=== PATIENT | female | born 1995 | race Caucasian/White ===

== ENCOUNTER 2017-04-06 11:48 | Emergency (ER) | payer OTHER ==
[2017-04-06 11:53] VITALS: TEMP 98.2
[2017-04-06] MEDS ORDERED: ONDANSETRON 4 MG/2 ML VIAL IVP ONE (12:46)
[2017-04-06] MEDS ORDERED: NS 1,000 ML IV ONE (12:46)
[2017-04-06] MEDS ORDERED: HYDROmorphONE/DILAUDID 1 MG/ML INJ IVP ONE (12:46)
--- NOTE | 2017-04-06 12:46 | EDPHY ---
General Narrative: CHIEF COMPLAINT: Abdominal pain HISTORY OF PRESENT ILLNESS: Patient complains of 10 hours history of lower abdominal pain. Sudden onset. Constant duration. Severe pain. Nauseated but no vomiting. She has got some vaginal discharge and bleeding recently. She was seen at principal statistical programmer office yesterday to established as a new patient, as her previous principal statistical programmer had retired. She had no pain at the time. It is worse with any kind of movement or palpation. 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 She has had recurrent revisions for this. She has no other associated complaints or modifying factors.. The visit yesterday did include pelvic exam with swabs that were pending. REVIEW OF SYSTEMS: Ten systems reviewed and are negative unless otherwise noted in the HPI PCP: None locally. Back in [place] SPECIALISTS: Dr. Rasheed, currently establishing here with [facility] PAST MEDICAL HISTORY: Ovarian cyst, ovarian torsion, laryngeal tracheomalacia PAST SURGICAL HISTORY: Tracheostomy as a . Multiple abdominal surgeries for dermoid cyst and torsion SOCIAL HISTORY: Nonsmoker. Originally from [place]. 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 FAMILY HISTORY: Noncontributory EXAMINATION General Appearance: Alert, no distress, crying but consolable Head: normocephalic, atraumatic Eyes: Pupils equal and round, no conjunctival pallor or injection ENT, Mouth: Mucous membranes moist Neck: Normal inspection, supple, non-tender Respiratory: Lungs are clear to auscultation. No wheeze, rhonchi or crackles Cardiovascular: Regular rate and rhythm. No murmur Gastrointestinal: Abdomen is soft and nondistended. There is tenderness in the lower quadrants. No rebound. No guarding. No tympany. No rigidity. No CVA tenderness. Back: non-tender, no bony abnormalities Neurological: A&O, nonfocal, normal gait Skin: Warm and dry, no rash Extremities: Nontender, no pedal edema Psychiatric: Mood and affect normal DIFFERENTIAL DIAGNOSES: Including but not limited to ovarian torsion, ovarian cyst, ruptured ovarian cyst, appendicitis, colitis, UTI, cystitis, ureteral stone MDM: 12:45 p.m. Lower abdominal pain in a patient with history of ovarian cyst and torsion. I have ordered a stat ultrasound of the pelvis to rule out torsion. Laboratory studies, pain medication IV fluid ordered. 1:00 p.m. I reviewed the laboratory studies from yesterday, her pelvic examination was negative for gonorrhea chlamydia. It was positive for bacterial vaginosis. I will treat her with Flagyl. 1:29 p.m. Laboratory studies are all negative. This includes CBC, chemistry, lipase. Urinalysis pending. Ultrasound pending. 2:05 p.m. Contacted by radiologist Dr. Richmond. Ultrasound findings as documented. Concern for poor position of the left ovary. Recommend CT scan for further imaging if indicated never examine the patient. She continues to have pain and has consented to the CT scan. 3:00 p.m. Patient re-evaluated. Still pending CT scan. 3:[address] scan as reviewed by me reveals significant stool but no acute findings. Pending radiology interpretation. 4:10 p.m. Case discussed with radiologist Dr. Richmond. CT scan findings of the abdomen pelvis as documented. This includes mild thickening of the bladder wall, moderate stool. No other acute findings. 4:20 p.m. I have re-evaluated the patient. I have updated her niece findings of the CT scan and her laboratory studies. There is a possibility of early urinary tract infection. I have ordered a urine culture. I will treat her for her bacterial vaginosis that was diagnosed on yesterday's pelvic exam. All treated with Keflex for the urinary tract infection. I will provide a prescription for Diflucan as she reports being prone to yeast infections. I would like her to take a dose of magnesium citrate this evening and consider MiraLax daily. I would like her to follow up here or with primary care physician in 48 hours for recheck if no improvement. Return sooner for any worsening pain. She is comfortable this plan. At time of discharge her abdominal pain is resolved. - Diagnostics Imaging Results: Imaging Impressions Pelvic/Renal Ultrasound 04/06/17 12:47 Impression: 1. Normal appearance of the right ovary, with no evidence of torsion. 2. Nonconfident evaluation of the left ovary. Findings were discussed with Bienvenido Nunez PA-C at 14:02, on 04/06/2017. If there is further clinical concern regarding the patient's symptoms, contrast enhanced CT imaging could be considered. - History Smoking Status: Never smoked - Objective Vital Signs: Initial Vital Signs Temperature (C) 98.2 F 04/06/17 11:51 Heart Rate 100 04/06/17 11:51 Respiratory Rate 20 04/06/17 11:51 Blood Pressure 138/95 H 04/06/17 11:51 O2 Sat (%) 96 04/06/17 11:51 O2 Delivery Mode Room Air Allergies/Adverse Reactions: No Known Allergies Allergy (Verified 04/06/17 11:50) Home Medications: Medication Instructions Recorded Seasonale/Jolessa 03/04/16 Cephalexin [Keflex (*)] 500 mg PO TID #21 cap 04/06/17 Fluconazole [Diflucan (*)] 150 mg PO ONCE #2 tab 04/06/17 Magnesium Citrate [Magnesium 300 ml PO ONCE #1 bottle 04/06/17 Citrate 300 ml (*)] metroNIDAZOLE [Flagyl 500 mg (*)] 500 mg PO BID #14 tab 04/06/17 Laboratory Results: Laboratory Results 04/06/17 13:01 04/06/17 13:01 04/06/17 04/06/17 04/06/17 14:12 13:01 13:01 WBC RBC Hgb Hct MCV MCH MCHC RDW Plt Count MPV Neut % (Auto) Lymph % (Auto) [place] % (Auto) Eos % (Auto) Baso % (Auto) Nucleat RBC Rel Count Absolute Neuts (auto) Absolute Lymphs (auto) Absolute Monos (auto) Absolute Eos (auto) Absolute Basos (auto) Absolute Nucleated RBC Immature Gran % Immature Gran # Sodium 137 mEq/L mEq/L (134-144) Potassium 4.6 mEq/L mEq/L (3.5-5.2) Chloride 106 mEq/L mEq/L (97-110) Carbon Dioxide 21 mEq/l L mEq/l (22-31) Anion Gap 10 mEq/L mEq/L (8-16) BUN 8 mg/dL mg/dL (7-23) Creatinine 0.8 mg/dL mg/dL (0.6-1.0) Estimated GFR > 60 Glucose 84 mg/dL mg/dL (70-100) Calcium 9.9 mg/dL mg/dL (8.5-10.4) Total Bilirubin 0.6 mg/dL mg/dL (0.1-1.4) Conjugated Bilirubin 0.2 mg/dL mg/dL (0.0-0.5) Unconjugated Bilirubin 0.4 mg/dL mg/dL (0.0-1.1) AST 18 IU/L IU/L (14-46) ALT 22 IU/L IU/L (9-52) Alkaline Phosphatase 86 IU/L IU/L (38-126) Total Protein 7.4 g/dL g/dL (6.3-8.2) Albumin 4.2 g/dL g/dL (3.5-5.0) Lipase 89 IU/L IU/L (23-300) Beta HCG, Qual NEGATIVE Urine Color MOI Urine Appearance MODERATELY TURBID Urine pH 5.0 (5.0-7.5) Ur Specific [place] 1.028 (1.002-1.030) Urine Protein 1+ H (NEGATIVE) Urine Ketones NEGATIVE (NEGATIVE) Urine Blood NEGATIVE (NEGATIVE) Urine Nitrate NEGATIVE (NEGATIVE) Urine Bilirubin NEGATIVE (NEGATIVE) Urine Urobilinogen 2.0 EU H EU (0.2-1.0) Ur Leukocyte Esterase 1+ H (NEGATIVE) Urine RBC 5-10 /hpf H /hpf (0-3) Urine WBC 10-15 /hpf H /hpf (0-3) Ur Epithelial Cells TRACE /lpf /lpf (NONE-1+) Urine Bacteria 3+ /hpf H /hpf (NONE SEEN) Urine Mucus 2+ /lpf H /lpf (NONE-1+) Urine Yeast PRESENT /hpf /hpf (NONE SEEN) Urine Glucose NEGATIVE (NEGATIVE) 04/06/17 13:01 WBC 6.90 10^3/uL 10^3/uL (3.80-9.50) RBC 4.91 10^6/uL 10^6/uL (4.18-5.33) Hgb 13.5 g/dL g/dL (12.6-16.3) Hct 40.6 % % (38.0-47.0) MCV 82.7 fL fL (81.5-99.8) MCH 27.5 pg L pg (27.9-34.1) MCHC 33.3 g/dL g/dL (32.4-36.7) RDW 14.5 % % (11.5-15.2) Plt Count 237 10^3/uL 10^3/uL (150-400) MPV 10.3 fL fL (8.7-11.7) Neut % (Auto) 72.9 % % (39.3-74.2) Lymph % (Auto) 15.1 % % (15.0-45.0) [place] % (Auto) 9.7 % % (4.5-13.0) Eos % (Auto) 1.3 % % (0.6-7.6) Baso % (Auto) 0.6 % % (0.3-1.7) Nucleat RBC Rel Count 0.0 % % (0.0-0.2) Absolute Neuts (auto) 5.03 10^3/uL 10^3/uL (1.70-6.50) Absolute Lymphs (auto) 1.04 10^3/uL 10^3/uL (1.00-3.00) Absolute Monos (auto) 0.67 10^3/uL 10^3/uL (0.30-0.80) Absolute Eos (auto) 0.09 10^3/uL 10^3/uL (0.03-0.40) Absolute Basos (auto) 0.04 10^3/uL 10^3/uL (0.02-0.10) Absolute Nucleated RBC 0.00 10^3/uL 10^3/uL (0-0.01) Immature Gran % 0.4 % % (0.0-1.1) Immature Gran # 0.03 10^3/uL 10^3/uL (0.00-0.10) Sodium Potassium Chloride Carbon Dioxide Anion Gap BUN Creatinine Estimated GFR Glucose Calcium Total Bilirubin Conjugated Bilirubin Unconjugated Bilirubin AST ALT Alkaline Phosphatase Total Protein Albumin Lipase Beta HCG, Qual Urine Color Urine Appearance Urine pH Ur Specific [place] Urine Protein Urine Ketones Urine Blood Urine Nitrate Urine Bilirubin Urine Urobilinogen Ur Leukocyte Esterase Urine RBC Urine WBC Ur Epithelial Cells Urine Bacteria Urine Mucus Urine Yeast Urine Glucose Medications Given: Discontinued Medications Hydromorphone HCl (Dilaudid) 0.5 mg IVP EDNOW ONE Stop: 04/06/17 12:47 Last Admin: 04/06/17 13:02 Dose: 0.5 mg Sodium Chloride (Ns) 1,000 mls @ 0 mls/hr IV EDNOW ONE; Wide Open PRN Reason: Protocol Stop: 04/06/17 12:47 Last Admin: 04/06/17 13:03 Dose: 1,000 mls Ondansetron HCl (Zofran) 4 mg IVP EDNOW ONE Stop: 04/06/17 12:47 Last Admin: 04/06/17 13:02 Dose: 4 mg Departure - Departure Disposition: Home, Routine, Self-Care Clinical Impression: Bacterial vaginosis Abdominal pain Qualifiers: Abdominal location: lower abdomen, unspecified Qualified Code(s): R10.30 - Lower abdominal pain, unspecified Constipation Qualifiers: Constipation type: unspecified constipation type Qualified Code(s): K59.00 - Constipation, unspecified Acute cystitis Qualifiers: Hematuria presence: with hematuria Qualified Code(s): N30.01 - Acute cystitis with hematuria Condition: Good Instructions: Acute Abdominal Pain (ED), Urinary Tract Infection in Women (ED) , Constipation (ED), Bacterial Vaginosis (ED) Additional Instructions: 1. Medications as prescribed to completion 2. Magnesium citrate x1 3. MiraLax once daily dosing [id number] 4. Increase fiber and water intake 5. Follow up with primary care physician or here in 48 hours for recheck 6. ED precautions for worsening pain, fever, right lower quadrant pain Referrals: NONE *PRIMARY CARE P,. [Primary Care Provider] - As per Instructions Casey Hernandez MD [Medical Doctor] - As per Instructions Stand Alone Forms: School Excuse Prescriptions: Cephalexin [Keflex (*)] 500 mg PO TID #21 cap Fluconazole [Diflucan (*)] 150 mg PO ONCE #2 tab Magnesium Citrate [Magnesium Citrate 300 ml (*)] 300 ml PO ONCE #1 bottle metroNIDAZOLE [Flagyl 500 mg (*)] 500 mg PO BID #14 tab
[2017-04-06 13:09] LABS: % IMMATURE GRANULYOCYTES 0.4 % (0.0-1.1); ABSOLUTE IMMATURE GRANULOCYTES 0.03 10^3/uL (0.00-0.10); ADD DIFF? NO; ADD MORPH? NO; ADD SCAN? NO; ATYPICAL LYMPHOCYTE FLAG 0 (0-99); FRAGMENT RBC FLAG 0 (0-99); HEMATOCRIT 40.6 % (38.0-47.0); HEMOGLOBIN 13.5 g/dL (12.6-16.3); LEFT SHIFT FLG 10 (0-99); LIPEMIA HEMOLYSIS FLAG 80 (0-99); MEAN CELL HEMOGLOBIN 27.5 pg (27.9-34.1); MEAN CELL HEMOGLOBIN CONCENTR. 33.3 g/dL (32.4-36.7); MEAN CELL VOLUME 82.7 fL (81.5-99.8); MEAN PLATELET VOLUME 10.3 fL (8.7-11.7); PLATELET CLUMPS FLAG 10 (0-99); PLATELET COUNT 237 10^3/uL (150-400); RED BLOOD CELL COUNT 4.91 10^6/uL (4.18-5.33); RED CELL DISTRIBUTION WIDTH 14.5 % (11.5-15.2)
[2017-04-06 13:24] LABS: ALANINE AMINOTRANSFERASE 22 IU/L (9-52); ALBUMIN 4.2 g/dL (3.5-5.0); ALKALINE PHOSPHATASE 86 IU/L (38-126); ANION GAP 10 mEq/L (8-16); ASPARTATE AMINOTRANSFERASE 18 IU/L (14-46); BILIRUBIN,TOTAL 0.6 mg/dL (0.1-1.4); BILIRUBIN-CONJUGATED 0.2 mg/dL (0.0-0.5); BILIRUBIN-UNCONJUGATED 0.4 mg/dL (0.0-1.1); CALCIUM 9.9 mg/dL (8.5-10.4); CARBON DIOXIDE 21 mEq/l (22-31); CHLORIDE 106 mEq/L (97-110); CREATININE 0.8 mg/dL (0.6-1.0); GLOMERULAR FILTRATION RATE > 60; GLUCOSE 84 mg/dL (70-100); POTASSIUM 4.6 mEq/L (3.5-5.2); SODIUM 137 mEq/L (134-144); TOTAL PROTEIN 7.4 g/dL (6.3-8.2)
[2017-04-06] MEDS ORDERED: IOPAMIDOL (ISOVUE-300) 100 ML BTL ONE (14:21)
[2017-04-06 14:59] LABS: BACTERIA 3+ /hpf (NONE SEEN); COLOR AMBER; LEUKOCYTE ESTERASE,URINE 1+ (NEGATIVE); MUCUS 2+ /lpf (NONE-1+); NITRITE,URINE NEGATIVE (NEGATIVE); YEAST PRESENT /hpf (NONE SEEN)
[2017-04-06 15:33] VITALS: RESP 18; O2SAT 100
[2017-04-06 16:43] VITALS: BP 104/68; PULSE 69
== END 2017-04-06 16:42 | disposition home or self-care (01) ==
DX: K59.00 Constipation, unspecified (principal); N30.01 Acute cystitis with hematuria; N76.0 Acute vaginitis; B96.89 Other specified bacterial agents as the cause of diseases classified elsewhere; E86.9 Volume depletion, unspecified
CPT/HCPCS: 96374; J1170; J2405; Q9967

== ENCOUNTER 2017-05-26 23:43 | Emergency (ER) | payer OTHER ==
[2017-05-27 00:16] VITALS: TEMP 97.9
[2017-05-27 00:54] LABS: % IMMATURE GRANULYOCYTES 0.8 % (0.0-1.1); ABSOLUTE IMMATURE GRANULOCYTES 0.04 10^3/uL (0.00-0.10); ADD DIFF? NO; ADD MORPH? NO; ADD SCAN? NO; ATYPICAL LYMPHOCYTE FLAG 20 (0-99); FRAGMENT RBC FLAG 0 (0-99); HEMATOCRIT 42.9 % (38.0-47.0); HEMOGLOBIN 14.4 g/dL (12.6-16.3); LEFT SHIFT FLG 0 (0-99); LIPEMIA HEMOLYSIS FLAG 80 (0-99); MEAN CELL HEMOGLOBIN CONCENTR. 33.6 g/dL (32.4-36.7); MEAN CELL VOLUME 83.5 fL (81.5-99.8); MEAN PLATELET VOLUME 10.2 fL (8.7-11.7); PLATELET CLUMPS FLAG 0 (0-99); PLATELET COUNT 317 10^3/uL (150-400); RED BLOOD CELL COUNT 5.14 10^6/uL (4.18-5.33); RED CELL DISTRIBUTION WIDTH 13.5 % (11.5-15.2)
--- NOTE | 2017-05-27 00:58 | EDPHY ---
H & P Stated Complaint: ?Suicide attempt/SI +++EtOH - Personal History LMP (Females 10-55): Irregular Current Tetanus Diphtheria and Acellular Pertussis (TDAP): Yes - Medical/Surgical History Hx Asthma: No Hx Chronic Respiratory Disease: No Hx Diabetes: No Hx Cardiac Disease: No Hx Renal Disease: No Hx Cirrhosis: No Hx Alcoholism: No Hx HIV/AIDS: No Hx Splenectomy or Spleen Trauma: No Other PMH: PMHx: PSHx: tracheomalacia, tracheotomies, ovarian tumors bilat - Social History Smoking Status: Never smoked HPI/ROS: Chief complaint: Possible suicidal ideation History of present illness: This is a 22-year-old female who was brought to the emergency department by friends out of concern that she was having suicidal thoughts. Patient is currently dealing with medical issues which include preparing to have surgery this week for a dermoid cyst. Apparently she is upset about this. She was at home cooking in drinking some alcohol this evening. Friends came over and apparently she made the statement that she did not want live anymore. Patient does admit to this statement however she denies actual suicidal ideation, she states she was just making out of frustration. She denies homicidal ideation. She denies illness or injury. Review of systems: A 10 point review of systems was obtained and other than described above was negative (Gustavo Weems) - Physical Exam Exam: General Appearance: Alert, nontoxic, heart hearing does not have hearing aids, reads lips and signs. Eyes: Pupils equal and round no pallor or injection. ENT, Mouth: Mucous membranes moist. Respiratory: There are no retractions, lungs are clear to auscultation. Cardiovascular: Regular rate and rhythm. Gastrointestinal: Abdomen is soft and non tender, no masses, bowel sounds normal. Neurological: Alert. Strength and sensation intact and symmetrical. Skin: Warm and dry, no rashes. Musculoskeletal: Neck is supple non tender. Extremities are symmetrical, full range of motion. Psychiatric: Patient is crying, appears upset. She is cooperative. (Gustavo Weems) Constitutional: Initial Vital Signs Temperature (C) 36.6 C 05/27/17 00:05 Heart Rate 110 H 05/27/17 00:05 Respiratory Rate 24 H 05/27/17 00:05 Blood Pressure 131/96 H 05/27/17 00:05 O2 Sat (%) 97 05/27/17 00:05 O2 Delivery Mode Room Air Allergies/Adverse Reactions: No Known Allergies Allergy (Verified 05/27/17 00:04) Home Medications: Medication Instructions Recorded Vee/Weia 03/04/16 Cephalexin [Keflex (*)] 500 mg PO TID #21 cap 04/06/17 Fluconazole [Diflucan (*)] 150 mg PO ONCE #2 tab 04/06/17 Magnesium Citrate [Magnesium 300 ml PO ONCE #1 bottle 04/06/17 Citrate 300 ml (*)] metroNIDAZOLE [Flagyl 500 mg (*)] 500 mg PO BID #14 tab 04/06/17 Naproxen 05/27/17 Medical Decision Making ED Course/Re-evaluation: Patient seen under the supervision of my secondary supervising physician Dr. Emilio Copeland. Patient presents to the emergency department with friends reported that she was stating she want to kill yourself. Patient does report she stated this but does not want to kill herself. She does admit to drinking alcohol. She is medically evaluated, she is significantly intoxicated. She will need to sober up overnight so she can be evaluated by mental health in the morning. Care of patient turned over to my attending physician Dr. Emilio Copeland at end of shift. (Gustavo Weems) This patient was signed out to me at shift change. I just re-evaluated her. She is clinically sober this morning. She is not suicidal. She states that she had a rough night and although she has attempted suicide in the past and has been hospitalized in the past she does not feel like she could never do that now. She is in a very good treatment program that she thinks is working for her. Additionally, she has has a lot of things going on in her life as she "directly and she would never commit suicide. Now that she sober she would like to just go home. She is admit and scared about going to a psychiatric facility because she has been there before and it made things worse for her. She has contracted for safety with me. (Nixon Gonzales) Other Provider: 0200 care assumed by me from SHIVA weems pending sober mental health evaluation. [address] Gonzales pending mental health evaluation. No issues during my care of this patient overnight. (Emilio Salas) - Data Points Laboratory Results: Laboratory Results 05/27/17 00:43 05/27/17 00:43 05/27/17 05/27/17 05/27/17 00:43 00:43 00:43 WBC RBC Hgb Hct MCV MCH MCHC RDW Plt Count MPV Neut % (Auto) Lymph % (Auto) [place] % (Auto) Eos % (Auto) Baso % (Auto) Nucleat RBC Rel Count Absolute Neuts (auto) Absolute Lymphs (auto) Absolute Monos (auto) Absolute Eos (auto) Absolute Basos (auto) Absolute Nucleated RBC Immature Gran % Immature Gran # Sodium 149 mEq/L H mEq/L (134-144) Potassium 4.4 mEq/L mEq/L (3.5-5.2) Chloride 113 mEq/L H mEq/L (97-110) Carbon Dioxide 17 mEq/l L mEq/l (22-31) Anion Gap 19 mEq/L H mEq/L (8-16) BUN 7 mg/dL mg/dL (7-23) Creatinine 0.7 mg/dL mg/dL (0.6-1.0) Estimated GFR > 60 Glucose 104 mg/dL H mg/dL (70-100) Calcium 10.0 mg/dL mg/dL (8.5-10.4) Beta HCG, Qual NEGATIVE Salicylates < 1.0 mg/dL L mg/dL (2.0-20.0) Urine Opiates Screen NEGATIVE (NEGATIVE) Acetaminophen < 10 mcg/mL L mcg/mL (10-30) Urine Barbiturates NEGATIVE (NEGATIVE) Ur Phencyclidine Scrn NEGATIVE (NEGATIVE) Ur Amphetamine Screen NEGATIVE (NEGATIVE) U Benzodiazepines Scrn NEGATIVE (NEGATIVE) Urine Cocaine Screen NEGATIVE (NEGATIVE) U Marijuana (THC) Screen NEGATIVE (NEGATIVE) Ethyl Alcohol 260 mg/dL H mg/dL (0-10) 05/27/17 00:43 WBC 5.23 10^3/uL 10^3/uL (3.80-9.50) RBC 5.14 10^6/uL 10^6/uL (4.18-5.33) Hgb 14.4 g/dL g/dL (12.6-16.3) Hct 42.9 % % (38.0-47.0) MCV 83.5 fL fL (81.5-99.8) MCH 28.0 pg pg (27.9-34.1) MCHC 33.6 g/dL g/dL (32.4-36.7) RDW 13.5 % % (11.5-15.2) Plt Count 317 10^3/uL 10^3/uL (150-400) MPV 10.2 fL fL (8.7-11.7) Neut % (Auto) 46.3 % % (39.3-74.2) Lymph % (Auto) 42.6 % % (15.0-45.0) [place] % (Auto) 6.9 % % (4.5-13.0) Eos % (Auto) 2.3 % % (0.6-7.6) Baso % (Auto) 1.1 % % (0.3-1.7) Nucleat RBC Rel Count 0.0 % % (0.0-0.2) Absolute Neuts (auto) 2.42 10^3/uL 10^3/uL (1.70-6.50) Absolute Lymphs (auto) 2.23 10^3/uL 10^3/uL (1.00-3.00) Absolute Monos (auto) 0.36 10^3/uL 10^3/uL (0.30-0.80) Absolute Eos (auto) 0.12 10^3/uL 10^3/uL (0.03-0.40) Absolute Basos (auto) 0.06 10^3/uL 10^3/uL (0.02-0.10) Absolute Nucleated RBC 0.00 10^3/uL 10^3/uL (0-0.01) Immature Gran % 0.8 % % (0.0-1.1) Immature Gran # 0.04 10^3/uL 10^3/uL (0.00-0.10) Sodium Potassium Chloride Carbon Dioxide Anion Gap BUN Creatinine Estimated GFR Glucose Calcium Beta HCG, Qual Salicylates Urine Opiates Screen Acetaminophen Urine Barbiturates Ur Phencyclidine Scrn Ur Amphetamine Screen U Benzodiazepines Scrn Urine Cocaine Screen U Marijuana (THC) Screen Ethyl Alcohol Departure - Departure Clinical Impression: Suicidal ideation Alcohol intoxication Qualifiers: Complication of substance-induced condition: uncomplicated Qualified Code(s): F10.920 - Alcohol use, unspecified with intoxication, uncomplicated Condition: Good Instructions: Alcohol Intoxication (ED), Suicide Prevention for Adults (ED) Referrals: Patient,NotPresent [Unknown] - As per Instructions [facility],. [Clinic] - As per Instructions
[2017-05-27 01:16] LABS: ANION GAP 19 mEq/L (8-16); CARBON DIOXIDE 17 mEq/l (22-31); CHLORIDE 113 mEq/L (97-110); CREATININE 0.7 mg/dL (0.6-1.0); ETHANOL SERUM 260 mg/dL (0-10); GLOMERULAR FILTRATION RATE > 60; GLUCOSE 104 mg/dL (70-100); POTASSIUM 4.4 mEq/L (3.5-5.2); SALICYLATE < 1.0 mg/dL (2.0-20.0); SODIUM 149 mEq/L (134-144)
[2017-05-27 07:22] VITALS: BP 121/87; PULSE 111; RESP 16; O2SAT 96
== END 2017-05-27 07:20 | disposition home or self-care (01) ==
DX: R45.851 Suicidal ideations (principal); F10.920 Alcohol use, unspecified with intoxication, uncomplicated
CPT/HCPCS: 80305; G0480

== ENCOUNTER 2018-06-04 14:54 | Emergency (ER) | payer OTHER ==
--- NOTE | 2018-06-04 15:30 | EDPHY ---
H & P Stated Complaint: CHRONIC PELVIC OVARIAN PAIN/HAS PAIN DR IN [place] /L OVARY PAIN Time Seen by Provider: 06/04/18 15:28 HPI/ROS: CHIEF COMPLAINT: Acute exacerbation of chronic pelvic pain HISTORY OF PRESENT ILLNESS: The patient presents to the ED with a complaint of acute left lower quadrant pain. The patient has a history of chronic pelvic pain from ovarian cyst. She has had multiple pelvic surgeries the complicated by adhesions. She is currently under the care of a chief development officer in [place]. The patient denies any fever. She has had symptoms for the past 48 hr. The patient is complaining of fairly typical pain in the left lower quadrant. She denies any fever, cough or congestion. She denies additional acute complaints. REVIEW OF SYSTEMS: A comprehensive 10 point review of systems is otherwise negative aside from elements mentioned in the history of present illness. Source: Patient - Personal History LMP (Females 10-55): 8-14 Days Ago Current Tetanus Diphtheria and Acellular Pertussis (TDAP): No - Medical/Surgical History Hx Asthma: No Hx Chronic Respiratory Disease: No Hx Diabetes: No Hx Cardiac Disease: No Hx Renal Disease: No Hx Cirrhosis: No Hx Alcoholism: No Hx HIV/AIDS: No Hx Splenectomy or Spleen Trauma: No Other PMH: PMHx: PSHx: tracheomalacia, tracheotomies, ovarian tumors bilat - Social History Smoking Status: Never smoked - Physical Exam Exam: General Appearance: Alert, tearful, mild discomfort Eyes: Pupils equal and round no pallor or injection ENT, Mouth: Mucous membranes moist Respiratory: There are no retractions, lungs are clear to auscultation Cardiovascular: Regular rate and rhythm Gastrointestinal: Tenderness to palpation in the left lower quadrant, no rebound, no peritoneal signs Neurological: A&O, normal motor function, normal sensory exam, normal cranial nerves Skin: Warm and dry, no rashes Musculoskeletal: Neck is supple nontender Extremities: symmetrical, full range of motion Psychiatric: Patient is oriented X 3, there is no agitation Constitutional: Initial Vital Signs Temperature (C) 36.6 C 06/04/18 15:01 Heart Rate 75 06/04/18 15:01 Respiratory Rate 19 06/04/18 15:01 Blood Pressure 110/72 06/04/18 15:01 O2 Sat (%) 98 06/04/18 15:01 O2 Delivery Mode Room Air Allergies/Adverse Reactions: No Known Allergies Allergy (Verified 06/04/18 15:01) Home Medications: Medication Instructions Recorded Seasonale/Weia 03/04/16 Hydrocodone/APAP 5/325 [Economy 1 - 2 each PO Q6 PRN #20 tab 06/04/18 5/325] Lupron Depot 11.25 mg (RX) 06/04/18 Medical Decision Making - Diagnostics Imaging Results: Imaging Impressions Pelvic/Renal Ultrasound 06/04/18 15:51 Impression: 1. Suspect right hydrosalpinx 2. No source for left sided pelvic pain identified. Results discussed with Dr. Johnny Toledo at 5:03 PM. ED Course/Re-evaluation: I reviewed the patient's past medical history including her workup from prior ED visits. Patient had an IV established. She received half a mg of Dilaudid and 4 mg of Zofran intravenously. The patient did have a pelvic ultrasound which demonstrated no evidence of a left-sided torsion, mass or other acute finding. The patient's laboratory studies are reviewed and a normal CBC is noted. The patient has chronic pelvic pain and presents to the ED with an acute exacerbation. The patient has had multiple CAT scans before in the past. I do not feel that she is presenting with an acute surgical abdomen. The patient will be given a prescription for oral pain medications and advised to follow up with her primary chief development officer tomorrow. Differential Diagnosis: Differential diagnosis considered includes ovarian torsion, ovarian cyst, ectopic - Data Points Laboratory Results: Laboratory Results 06/04/18 15:29 06/04/18 15:29 06/04/18 06/04/18 06/04/18 15:29 15:29 15:29 WBC 7.00 10^3/uL 10^3/uL (3.80-9.50) RBC 4.99 10^6/uL 10^6/uL (4.18-5.33) Hgb 14.5 g/dL g/dL (12.6-16.3) Hct 43.9 % % (38.0-47.0) MCV 88.0 fL fL (81.5-99.8) MCH 29.1 pg pg (27.9-34.1) MCHC 33.0 g/dL g/dL (32.4-36.7) RDW 11.4 % L % (11.5-15.2) Plt Count 294 10^3/uL 10^3/uL (150-400) MPV 10.1 fL fL (8.7-11.7) Neut % (Auto) 69.8 % % (39.3-74.2) Lymph % (Auto) 21.4 % % (15.0-45.0) [place] % (Auto) 6.0 % % (4.5-13.0) Eos % (Auto) 1.4 % % (0.6-7.6) Baso % (Auto) 1.0 % % (0.3-1.7) Nucleat RBC Rel Count 0.0 % % (0.0-0.2) Absolute Neuts (auto) 4.88 10^3/uL 10^3/uL (1.70-6.50) Absolute Lymphs (auto) 1.50 10^3/uL 10^3/uL (1.00-3.00) Absolute Monos (auto) 0.42 10^3/uL 10^3/uL (0.30-0.80) Absolute Eos (auto) 0.10 10^3/uL 10^3/uL (0.03-0.40) Absolute Basos (auto) 0.07 10^3/uL 10^3/uL (0.02-0.10) Absolute Nucleated RBC 0.00 10^3/uL 10^3/uL (0-0.01) Immature Gran % 0.4 % % (0.0-1.1) Immature Gran # 0.03 10^3/uL 10^3/uL (0.00-0.10) Sodium 137 mEq/L mEq/L (135-145) Potassium 4.4 mEq/L mEq/L (3.5-5.2) Chloride 104 mEq/L mEq/L (97-110) Carbon Dioxide 23 mEq/l mEq/l (22-31) Anion Gap 10 mEq/L mEq/L (6-14) BUN 13 mg/dL mg/dL (7-23) Creatinine 0.8 mg/dL mg/dL (0.6-1.0) Estimated GFR > 60 Glucose 96 mg/dL mg/dL (70-100) Calcium 10.3 mg/dL mg/dL (8.5-10.4) Beta HCG, Qual NEGATIVE Medications Given: Discontinued Medications Hydromorphone HCl (Dilaudid) 0.5 mg IVP EDNOW ONE Stop: 06/04/18 15:53 Last Admin: 06/04/18 15:55 Dose: 0.5 mg Lorazepam (Ativan Injection) 1 mg IVP EDNOW ONE Stop: 06/04/18 16:14 Last Admin: 06/04/18 16:16 Dose: 1 mg Ondansetron HCl (Zofran) 4 mg IVP EDNOW ONE Stop: 06/04/18 15:53 Last Admin: 06/04/18 15:55 Dose: 4 mg Departure - Departure Disposition: Home, Routine, Self-Care Clinical Impression: Chronic pelvic pain in female Condition: Good Instructions: Pelvic Pain in Women (ED) Additional Instructions: 1. Your laboratory testing ultrasound demonstrate no acute abnormality. 2. Please schedule a follow-up appointment with your regular chief development officer, Dr. Zhao. 3. Economy as needed for pain 4. Return to the ED for changing or worsening symptoms
[2018-06-04 15:36] LABS: PLATELET COUNT 294 10^3/uL (150-400)
[2018-06-04] MEDS ORDERED: HYDROmorphONE/DILAUDID 2 MG/ML INJ IVP ONE (15:52)
[2018-06-04] MEDS ORDERED: ONDANSETRON 4 MG/2 ML VIAL IVP ONE (15:52)
[2018-06-04] MEDS ORDERED: LORazepam 2 MG/ML INJ IVP ONE (16:13)
[2018-06-04 17:34] VITALS: BP 126/79
== END 2018-06-04 17:34 | disposition home or self-care (01) ==
DX: R10.2 Pelvic and perineal pain (principal); G89.29 Other chronic pain
CPT/HCPCS: 96374; J1170; J2060; J2405

== ENCOUNTER → 2018-07-30 | Outpatient (CLI) | payer OTHER | LOC: BMCIMAGING 18:17 | PROVIDERS: ATTEND Family Medicine | DX: M79.641 Pain in right hand (principal); M25.561 Pain in right knee ==

== ENCOUNTER 2018-08-27 16:58 | Emergency (ER) | payer OTHER | END 2018-08-27 20:26 | disposition home or self-care (01) ==

== ENCOUNTER 2018-11-08 18:14 | Inpatient (IN) | payer OTHER ==
[2018-11-08] MEDS ORDERED: NS 1,000 ML IV ONE (18:20)
--- NOTE | 2018-11-08 18:23 | EDPHY ---
General - History Smoking Status: Never smoked Time Seen by Provider: 11/08/18 18:18 Narrative: 2204: Patient has been accepted by Dr. Patel at [facility]. EMTALA signed. (Nixon Gonzales) CLINICAL IMPRESSION: Major depressive disorder, suicide attempt ASSESSMENT/PLAN: Patient is a 23-year-old female with a significant history of anxiety, major depressive disorder, PTSD, psychosis and previous suicide attempt presents today after suicide attempt last evening where she takes multiple medications. Patient with reported multi medication overdose 20 hr prior to include hydroxyzine, ibuprofen, War and mirtazapine. Patient took 11 tabs of 5/325 Tylenol, this translates is 252 milligrams/kilogram which is considered low risk for toxicity. Tylenol level was <10, she did not require acetylcysteine. Physical examination reveals labile affect and tearful, superficial wounds to left lower extremity consistent with cutting, no gaping wounds or evidence of deep structure involvement. CBC revealed mild leukocytosis, suspect reactive secondary to vomiting. She has had no infectious symptoms to suggest systemic illness. Metabolic panel with no metabolic abnormalities, BUN and creatinine normal without evidence of acute kidney injury. Hepatic function panel with mildly elevated alk phos, no evidence of transaminitis. PT INR normal. Salicylate and alcohol negative. Drug screen positive for opiates. There were no clinical findings to suggest intoxication, metabolic abnormality or other toxidrome. The patient was formally evaluated by behavioral health in the emergency department. After formal evaluation, they recommended admission to [facility]. The patient will be admitted to Dr. Patel. She remained hemodynamically stable and without further complaints in the emergency department. To note, the patient does have a warrant for her arrest and police would like to be notified upon her discharge. DIFFERENTIAL DX: Differential diagnosis including but not limited to and in no particular order psychosis, medication overdose, medication noncompliance, medication side effect , depression, electrolyte abnormality, toxicity and illicit drug use. ED COURSE: 1835: Case discussed with Dr. Gonzales. Patient took 11 hydrocodone 5/325 mg tabs. This is 52 milligrams/kilogram, considered low risk for toxicity. Awaiting laboratory studies at this time. 1844: I personally reviewed the medications that were brought in. Patient with an empty bottle of War 10/26/2024, 20 tabs had been prescribed several months prior. Patient reports taking 11 tabs. Empty bottle of 100 tab of 200 mg ibuprofen, unknown how long the patient has had this medication. Hydroxyzine prescription from January of 2018, 90 tabs prescribed three times daily p.r.n.. This bottle is empty. She is" sure how much of this medication she took this evening. Empty package of 1 month supply of her mirtazapine from October 04, this medication has recommendations to be taken daily; patient unsure if she took any of this medication this evening. I feel less likely considering where past 1 month a when she was prescribed this medication. Prazosin she has been taking as prescribed reportedly. 2004: ECG with normal sinus rhythm at a rate of 80, no evidence of dysrhythmia or ischemia. 2202: Patient has been formally evaluated by mental health, recommendation is for admission, she has been accepted under Dr. Patel at [facility]. 5: On repeat examination the patient is well-appearing, she is resting in bed while watching TV. No further nausea or vomiting. CHIEF COMPLAINT: Suicidal ideation, M1 HPI: Patient is a 23-year-old female with a significant history of anxiety, PTSD, psychosis and major depressive disorder who presents to the emergency department with suicide attempt last evening. Patient is brought in by EMS, history obtained by EMS, police and patient. Patient reports to me last evening she had thoughts of wanting to harm herself, she took multiple medications including unknown number of hydroxyzine, 11 War, "whole bottle of ibuprofen", unknown number of prescribed mirtazapine and 2 hits of acid. She also admits to superficial cutting of her left lower extremity. Patient reports that she was feeling very sad and very hopeless, she has a history of reported 7 suicide attempts in the past, she has been reportedly admitted on 4 different occasions for psychiatric reasons. Patient reports multiple episodes of emesis today, approximally 12 times. She complains of feeling nauseous, denies any other physical complaints. Specifically, she denies any headache, chest pain, shortness of breath, hematemesis or abdominal pain. She denies any visual or audio hallucination or homicidal ideation.Per police, she was placed on M1 hold by them. Roommates called police because the patient had persistent vomiting and had a knife on her bed for which they were concerned. Police also disclosed that the patient has a warrant for her arrest at this time. PMH: Anxiety, major depressive disorder, psychosis, PTSD, suicide attempt Pertinent Past Surgical History: Tracheomalacia, tracheotomy Social History: Illicit drug use REVIEW OF SYSTEMS: All other systems negative Constitutional: No fever, no chills. Eyes: No discharge, vision change ENT: No sore throat, congestion, ear pain. Cardiovascular: No chest pain, no palpitations. Respiratory: No cough, no shortness of breath. Gastrointestinal: Nausea and vomiting. No abdominal pain, diarrhea. Genitourinary: No hematuria, dysuria, flank pain. Musculoskeletal: No back pain, joint swelling, joint pain, myalgias. Skin: No rashes, color change. Neurological: No headache, weakness. PHYSICAL EXAM: General Appearance: Well-developed, tearful, not toxic-appearing. HENT: Normocephalic, atraumatic. Bilateral external ears are normal. Nares are clear, mucosa is pink. Oropharynx is clear, uvula is midline. There is no tonsillar enlargement or exudate. The dentition is normal. Eyes: PERRLA, EOMI intact. Conjunctiva pink, no pallor or injection. Neck: Supple, nontender, no lymphadenopathy, no midline pain, FROM, no meningismus. Respiratory: There are no retractions, lungs are clear to auscultation. Cardiac: Regular rate and rhythm- heart rate on my examination was 80, no murmurs or gallops. Gastrointestinal: Abdomen is soft, nontender, bowel sounds normal, no masses/ hernia, no rigidity, guarding or focal peritoneal findings. Neurological: Alert and oriented x 3, CN 2-12 grossly intact, normal sensation and strength Skin: Warm, dry, no rashes. Multiple superficial wounds on her left lower extremity consistent with reported cutting. No gaping wounds, no surrounding erythema. Musculoskeletal: Extremities are symmetrical, full range of motion, no tenderness, deformity, swelling, or erythema. Psychiatric: Patient is labile and tearful. She is not agitated.. MEDICAL DECISION MAKING: Patient was seen independently. Secondary supervising physician at time of evaluation was Dr. Gonzales, he did not evaluate this patient. Diagnosis: Suicidal ideation. Summary: See Assessment and Plan for summary of ED visit Clinical lab tests: ordered / reviewed. Independent visualization of images, tracing, or specimens: Yes. Decision to obtain medical records or history from someone other than the patient: Yes, police, EMS Review / Summarize previous medical records: Yes Discussed patient with another provider: Yes, Dr. Gonzales Patient Progress: Stable, admit. (Eva Wang) - Objective Vital Signs: Initial Vital Signs Temperature (C) 36.8 C 11/08/18 18:21 Heart Rate 95 11/08/18 18:21 Respiratory Rate 18 11/08/18 18:21 Blood Pressure 129/90 H 11/08/18 18:21 O2 Sat (%) 96 11/08/18 18:21 O2 Delivery Mode Room Air Allergies/Adverse Reactions: tuberculin,PPD,multi-puncture Allergy (Verified 11/08/18 18:27) Home Medications: Medication Instructions Recorded Seasonale/Jolessa 03/04/16 Lupron Depot 11.25 mg (RX) 06/04/18 Amitriptyline HCl 08/27/18 DULoxetine 08/27/18 Hydroxyzine Pamoate 25 mg PO Q8HRS PRN 08/27/18 traZODone 08/27/18 MIRTAZAPINE [Remeron 7.5 mg] 7.5 mg PO HS 11/08/18 Prazosin HCl [Minipress 1mg (*)] 1 mg PO HS 11/08/18 Laboratory Results: Laboratory Results 11/08/18 18:30 11/08/18 18:30 11/08/18 11/08/18 11/08/18 Unknown 18:30 18:30 WBC RBC Hgb Hct MCV MCH MCHC RDW Plt Count MPV Neut % (Auto) Lymph % (Auto) [place] % (Auto) Eos % (Auto) Baso % (Auto) Nucleat RBC Rel Count Absolute Neuts (auto) Absolute Lymphs (auto) Absolute Monos (auto) Absolute Eos (auto) Absolute Basos (auto) Absolute Nucleated RBC Immature Gran % Seg Neutrophils % Band Neutrophils % Lymphocytes % Monocytes % Eosinophils % Basophils % Metamyelocytes % Myelocytes % Promyelocytes % Blast Cells % Immature Gran # Absolute Seg Neuts Absolute Band Neuts Absolute Lymphocytes Absolute Monocytes Absolute Eosinophils Absolute Basophils Absolute Metamyelocyte Absolute Myelocytes Absolute Promyelocytes Absolute Plasma Cells RBC/WBC/PLT Morphology Absolute Blast Cells Plasma Cells % Platelet Estimate PT 12.7 SEC SEC (12.0-15.0) INR 0.99 (0.83-1.16) APTT 24.9 SEC SEC (23.0-38.0) Sodium Potassium Chloride Carbon Dioxide Anion Gap BUN Creatinine Estimated GFR Glucose Calcium Total Bilirubin Conjugated Bilirubin Unconjugated Bilirubin AST ALT Alkaline Phosphatase Total Protein Albumin Beta HCG, Qual NEGATIVE Salicylates Urine Opiates Screen NON-NEGATIVE H (NEGATIVE) Acetaminophen Urine Barbiturates NEGATIVE (NEGATIVE) Ur Phencyclidine Scrn NEGATIVE (NEGATIVE) Ur Amphetamine Screen NEGATIVE (NEGATIVE) U Benzodiazepines Scrn NEGATIVE (NEGATIVE) Urine Cocaine Screen NEGATIVE (NEGATIVE) U Marijuana (THC) Screen NEGATIVE (NEGATIVE) Ethyl Alcohol 11/08/18 11/08/18 18:30 18:30 WBC 10.18 10^3/uL H 10^3/uL (3.80-9.50) RBC 4.72 10^6/uL 10^6/uL (4.18-5.33) Hgb 13.8 g/dL g/dL (12.6-16.3) Hct 41.4 % % (38.0-47.0) MCV 87.7 fL fL (81.5-99.8) MCH 29.2 pg pg (27.9-34.1) MCHC 33.3 g/dL g/dL (32.4-36.7) RDW 12.0 % % (11.5-15.2) Plt Count 254 10^3/uL 10^3/uL (150-400) MPV 10.1 fL fL (8.7-11.7) Neut % (Auto) Not Reported Lymph % (Auto) Not Reported [place] % (Auto) Not Reported Eos % (Auto) Not Reported Baso % (Auto) Not Reported Nucleat RBC Rel Count Not Reported Absolute Neuts (auto) Not Reported Absolute Lymphs (auto) Not Reported Absolute Monos (auto) Not Reported Absolute Eos (auto) Not Reported Absolute Basos (auto) Not Reported Absolute Nucleated RBC Not Reported Immature Gran % Not Reported Seg Neutrophils % 91.0 % % Band Neutrophils % 1.0 % % Lymphocytes % 6.0 % % Monocytes % 2.0 % % Eosinophils % 0.0 % % Basophils % 0.0 % % Metamyelocytes % 0.0 % % Myelocytes % 0.0 % % Promyelocytes % 0.0 % % Blast Cells % 0.0 % % Immature Gran # Not Reported Absolute Seg Neuts 9.26 10^3/uL H 10^3/uL (1.70-6.50) Absolute Band Neuts 0.10 10^3/uL 10^3/uL (0.00-0.70) Absolute Lymphocytes 0.61 10^3/uL L 10^3/uL (1.00-3.00) Absolute Monocytes 0.20 10^3/uL L 10^3/uL (0.30-0.80) Absolute Eosinophils 0.00 10^3/uL L 10^3/uL (0.03-0.40) Absolute Basophils 0.00 10^3/uL L 10^3/uL (0.02-0.10) Absolute Metamyelocyte 0.00 10^3/mL 10^3/mL (0.00-0.00) Absolute Myelocytes 0.00 10^3/mL 10^3/mL (0.00-0.00) Absolute Promyelocytes 0.00 10^3/uL 10^3/uL (0.00-0.00) Absolute Plasma Cells 0.00 10^3/uL 10^3/uL (0.00-0.00) RBC/WBC/PLT Morphology NORMAL (NORMAL) Absolute Blast Cells 0.00 10^3/uL 10^3/uL (0.00-0.00) Plasma Cells % 0.0 % % Platelet Estimate ADEQUATE (ADEQ) PT INR APTT Sodium 142 mEq/L mEq/L (135-145) Potassium 4.0 mEq/L mEq/L (3.5-5.2) Chloride 104 mEq/L mEq/L (97-110) Carbon Dioxide 21 mEq/l L mEq/l (22-31) Anion Gap 17 mEq/L H mEq/L (6-14) BUN 11 mg/dL mg/dL (7-23) Creatinine 0.8 mg/dL mg/dL (0.6-1.0) Estimated GFR > 60 Glucose 97 mg/dL mg/dL (70-100) Calcium 10.0 mg/dL mg/dL (8.5-10.4) Total Bilirubin 0.2 mg/dL mg/dL (0.1-1.4) Conjugated Bilirubin 0.1 mg/dL mg/dL (0.0-0.5) Unconjugated Bilirubin 0.1 mg/dL mg/dL (0.0-1.1) AST 30 IU/L IU/L (14-46) ALT 18 IU/L IU/L (9-52) Alkaline Phosphatase 135 IU/L H IU/L (38-126) Total Protein 7.7 g/dL g/dL (6.3-8.2) Albumin 4.6 g/dL g/dL (3.5-5.0) Beta HCG, Qual Salicylates < 1.0 mg/dL L mg/dL (2.0-20.0) Urine Opiates Screen Acetaminophen < 10 mcg/mL L mcg/mL (10-30) Urine Barbiturates Ur Phencyclidine Scrn Ur Amphetamine Screen U Benzodiazepines Scrn Urine Cocaine Screen U Marijuana (THC) Screen Ethyl Alcohol < 10 mg/dL mg/dL (0-10) Medications Given: Discontinued Medications Sodium Chloride (Ns) 1,000 mls @ 0 mls/hr IV EDNOW ONE; Wide Open PRN Reason: Protocol Stop: 11/08/18 18:21 Last Admin: 11/08/18 20:15 Dose: Not Given Ondansetron HCl (Zofran) 4 mg IVP EDNOW ONE Stop: 11/08/18 21:23 Last Admin: 11/08/18 21:36 Dose: 4 mg Departure - Departure Disposition: [facility] IP Clinical Impression: Suicidal ideation Condition: Fair Referrals: Patient,NotPresent [Unknown] - As per Instructions
[2018-11-08 18:43] LABS: PLATELET COUNT 254 10^3/uL (150-400)
[2018-11-08 19:10] LABS: INR 0.99 (0.83-1.16); PROTIME(PATIENT) 12.7 SEC (12.0-15.0)
--- NOTE | 2018-11-08 21:04 | CPEKG ---
Test Reason : OPEN Blood Pressure : / mmHG Vent. Rate : 080 BPM Atrial Rate : 079 BPM P-R Int : 170 ms QRS Dur : 072 ms QT Int : 400 ms P-R-T Axes : 025 041 019 degrees QTc Int : 462 ms Sinus rhythm Confirmed by Nixon Gonzales ([id number]) on 11/08/2018 9:03:34 PM Referred By: Nixon Gonzales Confirmed By:Nixon Gonzales
[2018-11-08] MEDS ORDERED: ONDANSETRON 4 MG/2 ML VIAL IVP ONE (21:22)
--- NOTE | 2018-11-08 23:13 | ASMTTCLDSP ---
TLC Discharge Disposition Disposition: Answers: Admit Discharge Concerns/Recommendations: Notes: In consultation with [facility] ED physician, Nixon Gonzales MD and on-call psychiatrist, Opal Patel MD, both concurred that pt appears to meet 27-65 criteria requiring psychiatric hospitalization as pt appears to be at risk of harm to self due to a mental illness condition. Pt was read the Patient Rights and Responsibilities Statement on 11/08/2018 at 22:00, original placed on chart, and pt was given photocopy of Rights. Pt signed her pt rights. Pt was given the 3[facility] prohibited belongings list while in the ED. Was patient given the Answers: Yes Inpatient Behavioral Health Prohibited Belongings List while in the ED? For inpatient Opal Patel MD admission, the following psychiatrist agreed to accept patient for admission to Behavioral Health ([facility]): Date Signed: 11/08/2018 11:12 PM Electronically Signed By:Debora Epstein
[2018-11-08] MEDS ORDERED: LACTULOSE 20 GM/30 ML UDCUP PO PRN (23:32)
[2018-11-08] MEDS ORDERED: MAGNESIUM HYDROXIDE 30 ML UDCUP PO PRN (23:32)
[2018-11-08] MEDS ORDERED: ONDANSETRON DISINTEGRATING 4 MG TAB PO PRN (23:32)
[2018-11-08] MEDS ORDERED: BISACODYL 10 MG SUPP PR PRN (23:32)
[2018-11-08] MEDS ORDERED: POLYETHYLENE GLYCOL 3350 17 GM PKT PO PRN (23:32)
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
[2018-11-09] MEDS ORDERED: MAGNESIUM HYDROXIDE 30 ML UDCUP PO PRN ×2 (00:51→01:25)
[2018-11-09] MEDS ORDERED: BISACODYL 10 MG SUPP PR PRN (00:51)
[2018-11-09] MEDS ORDERED: POLYETHYLENE GLYCOL 3350 17 GM PKT PO PRN (00:51)
[2018-11-09] MEDS ORDERED: ONDANSETRON DISINTEGRATING 4 MG TAB PO PRN (00:51)
[2018-11-09] MEDS ORDERED: LACTULOSE 20 GM/30 ML UDCUP PO PRN (00:51)
[2018-11-09] MEDS ORDERED: MAG HYDROX/AL HYDROX/SIMETH 30 ML UDCUP PO PRN (01:25)
[2018-11-09] MEDS ORDERED: LORazepam 0.5 MG TAB PO PRN (01:25)
[2018-11-09] MEDS ORDERED: ACETAMINOPHEN 325 MG TAB PO PRN (01:25)
[2018-11-09] MEDS ORDERED: MELATONIN 3 MG TAB PO PRN (01:26)
--- NOTE | 2018-11-09 06:43 | GCON ---
[f rep st] CONSULTATION HOSPITALIST CONSULT DATE OF CONSULTATION: 11/08/2018 SOURCE: Patient provides history, appears reliable. EMR was reviewed and case discussed with mental health provider. CHIEF COMPLAINT: Suicidal ideation and attempt. HISTORY OF PRESENT ILLNESS: This is a pleasant 23-year-old female with past medical history signific ant for major depressive disorder, anxiety, bipolar, personality disorder, and PTSD (per chart), who presents to the emergency department today following a reported ingestion of a 40-tab bottle of ibupr ofen, . Patient with a history of multiple hospitalizations in psychiatric facility. She also endorses today she has been experiencing some nausea and vomiting, and been using a knife for aguilar perficial cutting. The patient's roommates became concerned when patient had recurrent nausea and vo miting, but also noted that she had a knife on her bed. The patient continues to endorse suicidal id eation. Additionally, she is complaining of some generalized weakness and tremor. She states that h er nausea is improved. She is tolerating oral intake at this point. She also complains of mid to lo wer abdominal discomfort. She has not had a BM since arrival to the ED. The patient reports she has not passed gas in several hours. She denies any melena or hematochezia. No hematemesis reported. REVIEW OF SYSTEMS: GENERAL: Patient is reporting some chills. No fevers. SKIN: Sites of intentio nal cutting. Otherwise, no rashes or sores. CV: No chest pain or palpitations. RESPIRATORY: No s hortness of breath or cough. GI: As noted above. : No dysuria hematuria. MUSCULOSKELETAL: Pat ient complaining some generalized weakness and shaking. NEURO: No headache. No numbness or tinglin g. PSYCH: Continues to endorse suicidal ideation. She denies any HI, audio or visual hallucination s. 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 She denies any history of chronic pelvic pain or endometriosis. She denies taking any control or hormonal supplementa tion, but these are listed on her med rec, but which is unverified by Pharmacy at this time. ALLERGIES: PPD. No other medication allergies. HOME MEDICINES: As per EMR, but not yet reconciled: Mirtazapine 7.5 mg at h.s., hydroxyzine 25 mg p .o. q.8 hours p.r.n., prazosin 1 mg p.o. at h.s., trazodone, Jolessa, Lupron, duloxetine, amitriptyli ne. The patient reports she is not currently on any hormonal therapy. PAST MEDICAL HISTORY: Significant for anxiety, major depressive disorder, bipolar disorder, personal ity disorder, PTSD (per chart). PAST SURGICAL HISTORY: Significant for ovarian dermoid cysts bilaterally, resected; tracheomalacia w ith history of tracheostomy. FAMILY HISTORY: Patient denies any chronic medical issues such as diabetes, hypertension, or mental health disorders. SOCIAL HISTORY: Patient currently residing with roommates where she does feel safe. She denies any tobacco use. She does drink occasionally, nothing on a regular basis. She does use occasional [employer] products. PHYSICAL EXAM: VITAL SIGNS: Blood pressure is 129/90, heart rate is 95, respiratory rate 18, O2 sat 96% on room air, temperature 36.8. CURRENT VITALS AVAILABLE: Blood pressure 119/72, heart rate is 108, respiratory rate 20, O2 sat 97% on room air with temperature 36.8. GENERAL: No acute distress. Pleasant young adult female, sitting up eating David crackers. She does appear a little anxious. HEAD: Normocephalic, atraumatic. EYES: Extraocular muscles grossly intact. Pupils equal, round, and with decreased reactivity to light bilaterally, but symmetric. No scleral icterus or conjunctiva l injection. ENT: Mucous membranes appear slightly dry. No oropharyngeal erythema or exudates. NE CK: Supple. Trachea midline. CV: Regular rate and rhythm. No murmurs, rubs, or gallops appreciat ed. Heart rate is not tachycardic. RESPIRATORY: Lungs are clear to auscultation bilaterally. No w heezes, rales, or rhonchi. Respiratory status unlabored. ABDOMEN: Soft. She has positive bowel so unds. Patient is complaining of some tenderness to palpation in the left lower quadrant. There is n o rebound or guarding appreciated. Patient with multiple well-healed laparoscopic and 1 lower midlin e incisions, which are all well healed. : No suprapubic tenderness to palpation. No Xie cathet er in place. MUSCULOSKELETAL: The patient moves all extremities. Strength grossly intact 5/5. She is a little tremulous. PSYCH: Patient is slightly anxious, but she has fair eye contact, and respo nds appropriately to questions. NEURO: Grossly nonfocal. Mild resting tremor, but patient also xochitl ears anxious. LABORATORY STUDIES: WBC 10.18, H and H are 13.8 and 41.4, MCV 87.7, platelet count is 254. No bands . PT is 12.7, INR 0.9, PTT is 24.9. Sodium is 142, potassium 4.0, chloride 104, CO2 21, anion gap 1 7; BUN 11, creatinine 0.8, GFR greater than 60; glucose 97, calcium is 10.0. Total bili 0.2, ALT is 18, AST is 30, alk phos is 135, total protein 7.7, albumin 4.6. Beta hCG is negative. U-tox is posi tive for opiates, negative for salicylates or acetaminophen. Alcohol level is negative. EKG, reviewed myself, showing normal sinus rhythm in the 80s. Some motion artifact is present. No a cute ST changes. QTc is 462. ASSESSMENT AND PLAN: A 23-year-old female with history of suicidal attempt with overdose. 1. Suicide attempt by ingestion with report of 11 and "bottle of ibuprofen." When asked to quantify, patient reports it was a 40-tab bottle, but she does not clarify if this is a new bottle . Currently, patient's vital signs, EKG and renal function are all intact. The patient is a little bit tremulous, may be showing signs of a little bit of withdrawal. She is intermittently tachycardic , but on exam is regular. The patient may benefit from a repeat BMP in the morning, which I will ord er. 2. Lower abdominal pain. This could be a side effect of the [place] that patient ingested yesterday. She has not had a bowel movement, by her report, or had passage of any gas in the last several hours . Her abdomen is benign. Do not suspect any bowel obstruction. She does have a history of abdomina l surgeries. We will add on a bowel program, and now that patient is able to tolerate oral intake, e ncourage oral hydration and higher fiber diet. 3. Mildly elevated anion gap, likely related to nausea, vomiting and dehydration. The patient is to lerating oral intake. She received IV fluids. 4. Anxiety, depression. Listed bipolar disorder, personality disorder and posttraumatic stress diso rder. As per primary team. Thank you for this consultation. Feel free to contact us with any questions. /[id number]/MODL
[2018-11-09] MEDS ORDERED: SENNOSIDES/DOCUSATE SODIUM TAB PO SCH (09:00)
--- NOTE | 2018-11-09 09:02 | ASMTBHMTP ---
Master Treatment Plan Master Treatment Plan Answers: Depressed Mood with for: Suicidal Ideation Date: 11/09/2018 Diagnosis on Admission: Major Depressive Disorder, recurrent, severe 296.33 Expected length of stay: 3-5 Days Reason for admission: Notes: Pt is a 23y/o female, student at , who was brought to the ED by [employer] following their appearance at her home following a 911 call from her roommates. They placed her on an an M1 for being a danger to herself. Per M1, Contact (Tomas) she was sad, emotional,, said she took her meds to try to hurt herself, said she did and does cut . Stated depressed. Transport by and to [facility], (Tomas) danger to herself". Per ED physician's report, "patient reports to me last evening she had thoughts of wanting to harm herself, she took multiple medications including unknown numbers of hydroxyzine, 11 [place], "whole bottle of Ibuprofen, unknown number of prescribed Mirtrazapine and 2 hits of acid". After taking these medicines the pt made a superficial cut on her lower leg. Pt reported multiple episodes of emesis, proximally 12 times. roommates called police because the pt had persistent vomiting and had a knife on her bed. The police disclosed to the physician that the pt had a warrant out for her arrest at this time and they were to be called prior to discharging her from the hospital. Pt was last seen in the Ed in August. That ED visit was preceded by her being contacted by the police at her dorm. They arrested her for using stolen credit cards/money, a misdemeanor or a felony. Per M1, " Contact (Tomas) at residence, very emotional, crying, shortness of breadth, while transport to custodial on previous charge, stated, I should have killed herself, not worth living, wanted me to shoot her. Due to shortness of breadth, chest pain, cry had [facility] transport to [facility] for M1". During that mental health evaluation the pt was not found to be a danger to herself and was discharged home. Pt stated that shortly after that incident her parents sent her to [facility] in [place] because of her depression. She completed their program in 41 days and returned home 3 1/2 weeks ago. Since then the pt states she has been "sleeping". She endorses multiple symptoms of depression including: SI, a suicide attempt tonight proceeded by writing a suicide note, depressed mood, hopelessness, a profound sense of past failures, guilt, strong self-dislike, agitation, feelings of worthlessness, a lack of pleasure in most activities, difficulty making decisions and concentrating, irritability, fatigue and a lower appetite. When asked if she could keep herself safe if returned home, she replied, "guess so...I can go home". Patient's stated presenting problems: Notes: Pt. reports she "tried to overdose", adding she has been "thinking about for a while" adding this is due to her "entire situation". Patient's goals for treatment: Notes: Pt. stated her goal is "getting through the day". Patient's strengths: Notes: Pt. stated "not really" when asked about strengths. Identify supports outside of hospital: Notes: Pt. stated "don't really have one of those", adding she sees Nia Duvall. Discharge criteria: Notes: Suicidal ideation will resolve and patient will have a plan to safely manage recurrent suicidal ideation. Initial disposition plan/considerations: Notes: Pt. stated she plans to return home and possibly resume school this summer. Master Treatment Plan Required Signatures Psychiatrist signature: Answers: Psychiatrist: RN on-shift signature: Answers: RN: Patient signature: Answers: Patient: Date Signed: 11/09/2018 09:00 AM Electronically Signed By:Fouzia Somers
[2018-11-09] MEDS ORDERED: GABAPENTIN 300 MG CAP PO ONE (09:23)
[2018-11-09] MEDS: SENNOSIDES/DOCUSATE SODIUM TAB PO SCH ×2 (09:59→21:52)
[2018-11-09] MEDS: VENLAFAXINE XR 75 MG CAP PO SCH (12:08)
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
--- NOTE | 2018-11-09 13:19 | PDMN ---
Medical Necessity Medical necessity: Pt meets inpt criteria per MD order and [facility] [id number], Major Depressive Disorder, Adult: Inpatient Care, 3 days. 23 y/o on M1 hold due to risk of harm to self presented to ED after suicide attempt w/problems of ongoing depression most recently accompanied by suicidal ideation w/attempt. Admitted w/major depressive disorder, severe, w/anxious distress, inpt psychiatric hospitalization for safety, crisis stabilization, and medication evaluation.
--- NOTE | 2018-11-09 14:14 | ASMTCMCOM ---
CM Note CM Note Notes: CC met with pt. to complete MTP. Pt. reports being disappointed that she survived her overdose. Pt. reports seeing Nia Duvall at [facility] at . Pt. reports she has court today at 4:30pm, in [place] for a theft charge. Pt. reports drinking alcohol two times per week, usually having 2-3 drinks per sitting, adding sometimes she will "binge". Pt. reports not seeing her drinking as an issue, but does acknowledge it is a depressant. Pt. reports using THC a week ago, adding she uses it "recreationally". Pt. reports THC is not an issue for her. Pt. reports using LSD once and then when deciding to overdose, she took anything available in her home. Pt. reports being at [facility] in [place] three weeks ago. Pt. reports her "parents had an intervention". Pt. reports being at [facility] for 41 days, not on a voluntary basis. Pt. denied SI, HI, AVH and paranoia. Pt. presents as alert, anxious, tense, good eye contact, open, polite and cooperative. Pt. arrived early this morning. Pt. has a follow up 11/14/18 at 3:00pm with Kirstie at [facility]. CC called [facility] and [facility] courts, pt. does not have court today. Staff to call [place] Police upon pt's discharge, call [phone]. Date Signed: 11/09/2018 02:13 PM Electronically Signed By:Fouzia Somers
--- NOTE | 2018-11-09 14:35 | ASMTBHFAM ---
Notes Note: Notes: CC briefly met with pt and MOC, Olga ([phone]). MOC expressed concern about pt and how much she does not want to leave. MOC expressed concern about if pt. is able to return home, adding pt's roommate is being shaken from this experience. Pt. expressed interest in attending an IOP, requested referrals. MOC stated pt was referred to [facility] but they stated she was not appropriate for their IOP. Pt. stated she wants an IOP for mental health, not substance use. Pt. reports her showcase trimmer is Maritza Oliva at . MOC requested to speak with pt's provider, [facility] notified. Date Signed: 11/09/2018 02:34 PM Electronically Signed By:Fouzia Somers
[2018-11-09] MEDS: GABAPENTIN 300 MG CAP PO SCH ×2 (16:01→21:51)
[2018-11-09] MEDS: guanFACINE HCL 1 MG TAB PO SCH (21:50)
[2018-11-09] MEDS: MIRTAZAPINE 15 MG TAB PO SCH (21:51)
[2018-11-10] MEDS: GABAPENTIN 300 MG CAP PO SCH ×3 (10:05→21:03)
[2018-11-10] MEDS: VENLAFAXINE XR 75 MG CAP PO SCH (10:05)
[2018-11-10] MEDS: SENNOSIDES/DOCUSATE SODIUM TAB PO SCH ×2 (10:05→21:02)
[2018-11-10] MEDS ORDERED: POLYETHYLENE GLYCOL 3350 17 GM PKT PO PRN (15:22)
[2018-11-10] MEDS ORDERED: DOCUSATE SODIUM 100 MG CAP PO PRN (15:24)
--- NOTE | 2018-11-10 19:02 | SOAPPROG ---
SOAP Progress Note Assessment/Plan: Assessment: 23yo cf with hx of MDD/PREMA and borderline PD admitted s/p OD in suicide attempt with intent 2 prior suicidal attempts 11/10/18 11:33 slept 7.5hr on M-1 attending groups Objective: Vital Signs Temp Pulse Resp BP Pulse Ox 36.5 C 63 14 98/63 L 97 11/10/18 06:00 11/10/18 06:00 11/10/18 06:00 11/10/18 06:00 11/10/18 06:00 PT 12.7 SEC (12.0-15.0) 11/08/18 Unknown INR 0.99 (0.83-1.16) 11/08/18 Unknown - Pending Discharge Pending Discharge Within 24 Hours: No ICD10 Worksheet Patient Problems: Problems Problem Status Onset Suicidal ideation Acute Major depressive disorder, recurrent episode, severe with anxious distress Chronic
[2018-11-10] MEDS: MIRTAZAPINE 15 MG TAB PO SCH (21:01)
[2018-11-10] MEDS: guanFACINE HCL 1 MG TAB PO SCH (21:02)
[2018-11-11] MEDS: VENLAFAXINE XR 75 MG CAP PO SCH (09:13)
[2018-11-11] MEDS: SENNOSIDES/DOCUSATE SODIUM TAB PO SCH ×2 (09:13→20:39)
[2018-11-11] MEDS: GABAPENTIN 300 MG CAP PO SCH ×3 (09:13→20:41)
--- NOTE | 2018-11-11 14:04 | ASMTCMCOM ---
CM Note CM Note Notes: Pt. reports wanting to attend the DBT IOP on the first floor of [facility]. Pt. reports feeling "good". Pt. stated she slept "okay the other night, didn't sleep last night" adding she didn't sleep due to a peer pt. yelling. Pt. reports getting enough to eat and "going to all groups". Pt. denies having any issues while on the unit. Pt. reports wanting to discharge, adding she is able to schedule her own follow up appointments, get to her appointments and fill and take her medications. Pt. reports she has prescriptions already waiting for her a [facility] [address]. Pt. reports having no concerns about discharging. Pt. reports feeling better due to communicating with her family. Pt. stated she had not spoken with her family in the past two months, adding she now feels supported by her family. Pt. denied SI, HI, AVH and paranoia. Pt. presents as alert, mostly calm, slightly nervous, good eye contact, friendly and cooperative. Staff report pt. sleeping 7 hours and being medication compliant. Pt. has an appointment at [facility] on 11/14 @ 3:00pm. Pt. requested to change her appointment back to Sunday 11/12 at 11am. Date Signed: 11/11/2018 02:04 PM Electronically Signed By:Fouzia Somers
--- NOTE | 2018-11-11 14:20 | ASMTBHFAM ---
Notes Note: Notes: CC met with pt and MD. Later pt's MOC joined the meeting. Pt. reports she "felt awful" after overdosing, adding it "scared the shit out of me". Pt. reports she was originally suppose to graduate in October, but had to drop the ester when she went to [place]. Pt. reports she felt as a "failed person". PT. reports isolating for four months, due to arguing with her family, adding she "felt like a dog with my tail between my legs". Pt. reports having no friends, "never really connected". Pt. reports wanting to discharge and stay with her family in [place]. Pt. was informed [employer] wants to be notified with pt. discharges. Pt. stated she "disputed the warrent", and is unsure why the police want to know when she discharges. Pt. stated she is "not very comfortable here", "not getting a lot being here", and "get more with my family". Pt. reports having some medications, mostly anti-depressants, left at home. Pt. reports she thinks her mom "wants me out of here". Pt. reports feeling her family can help her learn who she wants to be. MOC joined meeting. Pt. stated "I need to go home". MOC reports having some concerns about pt. coming home. MOC reports pt.'s father will arrive at 4:30pm today to visit. MOC reports there are no IOPs in [place]. MOC stated she does feel safe with pt. coming home, but does not like that pt. is not setup with the IOP. Pt. stated she didn't feel anyone in the meeting was listening to her about how she doesn't want to stay. MD and CC expressed their concerns with pt. discharging today. Pt. left the meeting. CC, MOC and MD present. MOC reports this is the pt's third M1 hold. MOC stated pt. is not able to return to her apartment currently, due to roommate being upset about pt's attempt. MOC stated she does not want the pt. discharge "till have a set plan". MOC reports the last 72 hours have been "most communication in three months". MOC agreed pt. would benefit from staying in the hospital until Monday to allow follow up plans to be put in place. [facility] agreed to talk with pt. about calling her roommate and see if pt. would be able to return to her apartment, so the patient is able to attend the DBT IOP starting tomorrow. Pt. ivelisse does not have a place to stay at in [place]. CC to refer pt. to [facility] DBT IOP group, which starts 11/12. Per [facility]'s request, CC to move [facility] appointment back to Monday. Pt. to call [employer] about if she currently has a warrant. Date Signed: 11/11/2018 02:19 PM Electronically Signed By:Fouzia Somers
[2018-11-11] MEDS: guanFACINE HCL 1 MG TAB PO SCH (20:39)
[2018-11-11] MEDS: MIRTAZAPINE 15 MG TAB PO SCH ×2 (20:39→20:41)
--- NOTE | 2018-11-11 23:04 | SOAPPROG ---
SOAP Progress Note Assessment/Plan: Assessment: 23yoCF with hx MDD/PREMA, PTSD, prob borderline pd who was admitted after suicide attempt by OD on pills. Per ED report 11/08, she took multiple medications including unknown number of hydroxyzine, 11 [place], "whole bottle of ibuprofen", unknown number of prescribed mirtazapine and 2 hits of acid and also reported superficial cutting of her left lower extremity. Reports that she was feeling very sad and very hopeless, she has a history of reported 7 suicide attempts in the past, she has been reportedly admitted on 4 different occasions for psychiatric reasons. Roommates called police because the patient had persistent vomiting and had a knife on her bed for which they were concerned. In ED, police also disclosed that the patient has a warrant for her arrest at this time. She was admitted on an M-1. 11/11/18 16:39 per staff, pt slept 7hr. Interviewed pt with jayden Cardoso present x 60min. *pls refer to cc note dated today for additional details. Then mother joined, and pt was felt to be pressuring mother to agree to take her home at time of M-1 expiration this PM despite no solid d/c plan in place. Then cc and MD met with mother without pt, who agreed she would not feel ready to take pt home w/o plan in place for f/u, noting also that pt housing may be an issue as her roommate may not feel comfortable having pt return following SA by OD/knife in bed. Pt states she "feels better...I'm more accepting of the situation I'm in" and states she recognizes her parents' support after having "isolated so hard from my family" . over this past weekend is the most communication family has had together over past 3 months. parents live in [place] and have been in [place] for support. Admits after OD "I was disoriented, and angry" about surviving attempt. But also admits, "that scared the shit out of me (after waking up)." prior to OD, she found self perseverating on feeling that she was a failure, a bad person, I wasn't eating, I had no money, I felt there was nothing about me that anybody would want, I couldn't see any way out...I was isolating from my family, we were arguing a lot...I felt like I kept getting yelled at and scolded (by them)" when she already was feeling bad about herself, concerned about legal issues, school, finances... States she took OD of pills which were still remaining in blister pack after [facility] hospital stay. "I also had a lot of hydroxyzine," adds. "Clonidine doesn't really help for panic" "I left some meds because I looked those up..." and did not take the ones she did not feel would be problematic in overdose, such as antidepressant (effexor) , tenex, gabapentin, prazosin. Apparently pt has an unresolved warrant currently active. Thought she had addressed warrant, but was informed that [employer] are to be notified at time of pt discharge. Pt seemed surprised, states she had [facility] fax a letter to the court about her being there at time of her hearing. Pt plans to f/u with outpt psych provider Nia Duvall at [facility]. Had appt Mon 11/12 but this had been rescheduled to 11/14 since it was anticipated pt may not be ready for d/c by 11/12. Pt states she has some outpatient meds waiting for her at [facility]. Mother -wants a "solid plan" after d/c. states pt did not follow thru with plan after last d/c for daily check ins. MSE: cooperative, appears stated age. casually dressed. kempt. nml rate/vol speech. initially calm demeanor, seeming eager to portray self as ready for discharge. became increasingly anxious and visibly distressed, almost tearful, altho maintaining control, with discussion of possibly staying in hospital beyond M- 1 expiration. perseverated on wanting to return with parents home to and to see her cat and sleep in her old bed. insisted she will f/u with outpt [facility], had hoped for appt 11/12. also reports she'd go to [facility] and grape picker meds waiting for her at [facility]. denied current SI now or during hosp stay, no plan/intent to harm self. states suicide attempt "scared me", however states suicide attempt "was a wake- up call - for them". The fact that she could have "makes me realize the effects of my decision on my family, roommate, legacy...my family was heartbroken. I put in a lot of work, they need to now...I'm ready to teach them , and me, how to be supportive (to each other)". no psychosis evident. denied ah/vh. externalization. limited insight. limited judgment. concern for ongoing impulsive tendencies and impaired emotional self- regulation. Pt did admit she initially wanted suicide attempt to be successful, but each day since, has been more glad to be alive. Today reports up to "87%" glad she's alive. Expressed reservations about IOP due to transportation concerns to get to IOP 3x /week w/o a car and from her apt by bus "might take 35min". Reminded that housing may be in jeopardy if roommates not comfortable with her return. Also if legal issues not resolved, may be picked up on a warrant after discharge. etc. During meeting with cc and mother and pt, pt does not want to stay beyond M-1 exp. Returned to meet with pt 1:1 at 16:45 regarding M-1. Pt stated she would stay until tomorrow and for d/c planning. Discussed concerns regarding her recent lability and hx of impulsivity. Placed pt on STC, noting she agreed to stay vol but with concerns she may not remain as a vol pt. Informed of rights, 3rd libertarian notification, right to legal representation. PLAN: - no med changes made at this time from admission. Has been started on Effexor since Pristiq not on formulary. Did feel this med was helpful as outpatient. Some RECS for AM prior to d/c to ensure safe d/c plan: 1. CC will contact [facility] IOP to determine if pt eligible for program and when able to start. Note pt was expressing concerns about transportation issues without car on how to get to IOP. 2. Pt will contact [employer] to f/u on status of warrant. States she called [facility] this afternoon and requested they fax her info [facility]BEL noting she was in hospital. CC can help with conference call if needed. Perhaps pt legal issues and consequences could be mitigated with some type of requirement to f/u with mental health 3. Contact [facility] to determine what meds are active and avail for grape picker. Discontinue any meds no longer prescribed or not indicated. Where did Porfirio and opiates on which pt OD'd come from? Consider requesting meds be dispensed in blister pack or in 1-week supply increments. (may need to coordinate this with outpt psychiatrist at ) 4. Contact [facility]/oupt therapist and coordinate d/c plan. Change appt back to Mon if possible since initial plan is to go home to [place] with parents. 5. Review pt safety plan 6. Contact roommate, resolve whether RM will feel comfortable with pt returning to live there, or whether family/pt need to make other housing arrangements. 7. Family therapy could be helpful, can discuss options on outpt basis, or start with pts indiv therapist 8. If pt will be in [place] for a period of time, recommend have safety plan in place, discuss monitoring of meds, and options locally avail (or in [place]) for crisis mental health services. 9. [facility] an option? Can pt continue with [facility]/ mental health services during summer? 10. Note that pt will be at chronic elevated risk of self harm, intentionally or unintentionally, given her chronic MH d/o and personality d/o and if using any substances or does not follow through with recommended treatment plan. 11. Placed on STC. Objective: Vital Signs Temp Pulse Resp BP Pulse Ox 36.6 C 77 12 110/71 96 11/11/18 06:00 11/11/18 17:30 11/11/18 06:00 11/11/18 17:30 11/11/18 06:00 PT 12.7 SEC (12.0-15.0) 11/08/18 Unknown INR 0.99 (0.83-1.16) 11/08/18 Unknown - Time Spent With Patient Time Spent With Patient: 120min ICD10 Worksheet Patient Problems: Problems Problem Status Onset Suicidal ideation Acute Major depressive disorder, recurrent episode, severe with anxious distress Chronic
[2018-11-12 06:25] VITALS: BP 86/47
[2018-11-12] MEDS: VENLAFAXINE XR 75 MG CAP PO SCH (08:59)
[2018-11-12] MEDS: SENNOSIDES/DOCUSATE SODIUM TAB PO SCH (08:59)
[2018-11-12] MEDS: GABAPENTIN 300 MG CAP PO SCH (08:59)
--- NOTE | 2018-11-12 09:28 | SOAPPROG ---
SOAP Progress Note Assessment/Plan: Assessment: Major Depressive Disorder, Severe, with anxious distress. Improvement noted. ( see subjective/objective note). Patient could benefit from continued inpatient hospitalization for crisis stabilization, safety, medication evaluation, and to establish safe discharge plan including follow-up appointments. Consider discharge this week. Plan: 1. Psychotropic medications: After reviewing options, risks, and benefits patient agrees to continue current medications. No medication changes at this time as more time is needed to determine ongoing tolerability and efficacy. Plan is to continue to observe patient for response and side effects from medications, and ongoing monitoring and evaluation. 2. Review with patient informed consent and recommendations for psychotropic medication treatment listed below 3. Labs: no additional at this time 4. Therapy: continue milieu and group therapy 5. Further investigation including gathering information from patients relatives and review of past case records to inform treatment plan. 6. Safety/Wellness plan and follow-up outpatient appointments to be established prior to discharge. Next steps are for patient to meet with healthcare sales representative to plan a safe discharge plan and establish outpatient services for ongoing treatment. 7. Confer with inpatient treatment team regarding treatment plan. 8. Psychosocial stressors addressed through director case management. 9. Legal status: [facility] 10. Consider discharge this week if patient is in stable condition, safe, and has a safe discharge plan. PSYCHOTROPIC MEDICATION TREATMENT INFORMED CONSENT and RECOMMENDATIONS: Review nature of condition, diagnosis, and prognosis. Review nature and purpose of psychotropic medication treatment. Review type of psychotropic medications being ordered. Review risk and benefits of psychotropic medication treatment. Review probable length of time patient will need to take medications. Review risk and benefits of not undergoing psychotropic medication treatment. Review alternative treatments to psychotropic medications. Review psychotropic medications contraindications, drug-drug interactions, side effects, and importance of reporting any side effects to a psychiatric provider or nurse during inpatient hospitalization, and upon discharge to patients psychiatric outpatient provider, primary care provider, or other health manager critical care unit. Review importance of asking a nurse, psychiatric provider, or primary care provider any questions or problems concerning the psychotropic medications. Verify patient understands the information that has been provided, and understands, accepts, and agrees to psychotropic medications. Review patients safety plan and importance of patient to report to staff while hospitalized if patient is ever a danger to self/others, or unable to care for self, and upon discharge, the importance for patient to contact [facility] or [facility], or go to the nearest emergency room, if patient is ever a danger to self/others, or unable to care for self. Recommend that upon discharge patient establish medication management treatment with a psychiatric provider, establishes routine therapy appointments, and follow-up with primary care provider. Verify patient understands and agrees to these recommendations. 11/12/18 09:28 Subjective: Following up with patient for evaluation of mood and safety. Patient reports, "Thought I was leaving over the weekend. Dr. Patel didn't let me leave. Not sure why. My mom is here, in [place]. I could leave this second." Patient reports taking medications as prescribed, reports no side effects, and reports her preference is to continue current medications. Patient reports no SI or self-injurious ideation. Objective: Vital Signs Temp Pulse Resp BP Pulse Ox 36.6 C 65 14 86/47 L 99 11/12/18 06:00 11/12/18 06:00 11/12/18 06:00 11/12/18 06:00 11/12/18 06:00 PT 12.7 SEC (12.0-15.0) 11/08/18 Unknown INR 0.99 (0.83-1.16) 11/08/18 Unknown MSE: The patient is a well-nourished female looking stated chronological age. Attire is appropriate dress is casual. Grooming status is appropriate. Ambulation is independent. Gait is normal and coordinated. Posture is normal. Eye contact is appropriate. Motor activity is appropriate with purposeful, organized, coordinated movements; with no involuntary movements. Attitude is cooperative. Patient appears attentive and relates well to this interviewer. Language production is spontaneous. R/R/V normal. Articulation is clear. Patient reports mood as okay with congruent affect. Patients thought process is linear and logical with no signs of thought disorder. Patient does not report suicidal/homicidal thoughts, ideas, or plans. Patient denies auditory, visual hallucinations. Patient denies delusions. Patient does not appear to be attending to internal stimuli. Patients attention and concentration are fair. Patient is oriented to person, place, time. Patients insight is poor. Patients judgment is poor. - Time Spent With Patient Time Spent With Patient: 15 minutes, met with patient individually. - Pending Discharge Pending Discharge Within 24 Hours: No Pending Discharge Within 48 Hours: No ICD10 Worksheet Patient Problems: Problems Problem Status Onset Suicidal ideation Acute Major depressive disorder, recurrent episode, severe with anxious distress Chronic
[2018-11-12] MEDS ORDERED: MIRTAZAPINE 15 MG TAB PO SCH (11:35)
--- NOTE | 2018-11-12 12:39 | BDS ---
[f rep st] BEHAVIORAL HEALTH DISCHARGE SUMMARY REASON FOR ADMISSION: From the ED note dated 11/08/2018, the patient with history of anxiety, major depressive disorder, PTSD, and history of previous suicide attempts, presented to the emergency department after a suicide attempt last evening where she had taken multiple medications. The patient was admitted involuntarily and on an M1 hold due to being a danger to herself. The patient was admitted for safety, crisis stabilization, and medication management. ADMITTING DIAGNOSIS: Major depressive disorder, severe, with anxious distress. ADMISSION PHYSICAL EXAM: Patient was seen on 11/08/2018 for history and physical consultation for medical clearance for inpatient psychiatric hospitalization and treatment. The patient was medically cleared for inpatient psychiatric hospitalization and treatment. For further details, please refer to consultation document dated 11/08/2018. ADMISSION LABS: 1. CBC within normal limits except white blood cells were elevated at 10.18. 2. Coagulation within normal limits. PT 12.7, INR 0.99, APTT 24.9. 3. BMP within normal limits except carbon dioxide was low at 21, anion gap was elevated at 17. 4. Hemoglobin A1c within normal limits at 5.2. 5. Liver function within normal limits except alkaline phosphatase was elevated at 137. 6. Lipid panel within normal limits except cholesterol was elevated at 223, LDL cholesterol calculated was elevated at 118, non-HDL cholesterol was elevated at 139, HDL cholesterol was elevated at 84. 7. Beta hCG qualitative test was negative. 8. Toxicology screen non-negative for urine opiates, negative for all other substances screened, and negative for ethyl alcohol. MAJOR PROCEDURES OR TESTS: Electrocardiogram dated 11/08/2018, QTc interval 462 msec, noted for sinus rhythm. HOSPITAL COURSE: The most prominent symptoms and behaviors while the patient was here were reports of moderate anxiety and depression. Treatment modalities utilized were milieu and group therapy. Gabapentin 300 mg p.o. t.i.d. was continued to target mood symptoms, was tolerated with no report of side effects and with good response. Guanfacine 1 mg p.o. q.h.s. was continued, was tolerated with no report of side effects and with good response. Effexor XR 75 mg p.o. daily was started to target mood symptoms, was tolerated with no report of side effects and with good response. The patient reports she plans to continue Pristiq 50 mg p.o. daily after hospitalization. Remeron 7.5 mg p.o. q.h.s. was continued to target insomnia symptoms related to mood symptoms, was tolerated with no report of side effects and with good response. Patient has improved considerably with no signs of psychiatric symptoms and no psychiatric symptoms expressed. Patient reports she has improved since admission, states to be in stable condition, feels safe to discharge, and she contracts for safety. Patients response to treatment was good. There were no adverse or unexpected results of treatment. The patient was safe throughout stay, active in treatment, engaged in groups, and was appropriate with staff. Patient met with treatment team prior to discharge to assess readiness to discharge and review discharge plan. The treatment team consensus is the patient in stable condition, has a safe discharge plan, and is ready to discharge today. CONDITION AT DISCHARGE: Patient is in stable condition and is no longer a danger to self or others, and is not gravely disabled due to mental illness. Patient is no longer in need of inpatient level of care, and can be safely and effectively treated within the community. The patients level of risk at time of discharge is low. MSE: The patient is casually dressed and with good hygiene , and looks stated age. Patient is sitting, posture is upright, and position is relaxed. Patient appears awake, alert, and responds appropriately and reasonably during interview. Patient is engaged, relates well to interviewer, and emotional facial expression is appropriate to situation and changes appropriately with topic. Patient is cooperative, makes comfortable eye contact , and movements are voluntary, deliberate, coordinated, and smooth and even with no inappropriate movements. Patient makes laryngeal sounds effortlessly and shares conversation appropriately; pace of conversation is appropriate, and stream of talking is fluent; articulation is clear and understandable; word choice is effortless and appropriate for education level; completes sentences, occasionally pausing to think; rate and volume are appropriate for interview and setting. Patient reports mood as euthymic. Patients affect is stable with full variable range, congruent with mood, and appropriate to speech and circumstances. Patient has linear and logical thinking, with no loose associations, tangential thought, thought blocking, concrete thinking, or any other signs of formal thought disorder. Patient denies suicidal and homicidal ideation, and denies hallucinations and delusions. Patient appears to be a reliable historian with sound judgement and good insight into current condition. Patient has no apparent dysfunction in recent or remote memory noted , and no evidence of gross cognitive dysfunction noted at any point during the interview. DISCHARGE DIAGNOSIS: Major depressive disorder, severe, with anxious distress. CURRENT MEDICATIONS: After reviewing options, risks, and benefits with the patient, the patient agrees to continue: 1. Guanfacine 1 mg p.o. q.h.s. 2. Gabapentin 300 mg p.o. t.i.d. 3. Pristiq 50 mg p.o. daily. 4. Remeron 7.5 mg p.o. q.h.s. The patient reports she has these prescriptions and has prescriptions waiting for her at [facility]. Patient reports she plans to pick these medications up after discharge. Patient requests no prescriptions at time of discharge. Prescriptions and medications are reviewed with the patient at time of discharge to ensure accuracy and patient understanding. DISPOSITION: Patient left hospital independently and voluntarily with her mother and plans to return to [place] and live with her mother and father. FOLLOWUP: health coordinator reports the appropriate outpatient follow-up services have been established and outpatient appointments have been scheduled. The patient received written instructions with times and dates of outpatient follow-up appointments. The following follow-up recommendations were provided to the patient at discharge: Continue psychotropic medications as prescribed and attend appointments as scheduled. Report any side effects to a psychiatric outpatient provider, a primary care provider, or other health wild animal caretaker. Address any questions or problems concerning the psychotropic medications with a psychiatric outpatient provider, a primary care provider, or other health wild animal caretaker. Contact [facility] or [facility], or go to the nearest emergency room, if you are ever a danger to yourself/others, or unable to care for yourself. As soon as possible, establish a routine medication management treatment with a psychiatric provider, establish routine therapy appointments, and follow-up with a primary care provider. LEGAL COURSE: The patient was admitted involuntarily. The patient became voluntary and her preference was to stay in the hospital voluntarily after her M1 . The patient discharged today independently and voluntarily. ATTITUDE AT TIME OF DISCHARGE: The patients attitude was positive at time of discharge, and patient reports looking forward to discharging today. The patient reports she feels safe to discharge, is no longer a danger to herself or others, is in stable condition, and contracts for safety. Patient states she will continue medications as prescribed, and establish medication management treatment with an outpatient provider after discharge. Patient reports she understands the information that has been provided to her, and she understands, accepts, and agrees to psychotropic medications. Patient describes internal protective factors as the coping skills she has learned while hospitalized here, and she plans to continue to practice these coping skills after discharge. FAMILY MEETING: This [employer]PERVISOR [employer]UMING and CC met with patient's mother at patient's request to review discharge plan. Patient's mother agrees with discharge plan and reports her daughter is safe to discharge with her today. This SUPER[employer] met with patient and patient's mother at patient's request to review medication treatment informed consent and recommendations. Patient's mother reports patient will be traveling back to [place] with her today, and will live with her at their home in [place]. LABS AND RADIOLOGY STUDIES: There were no pending labs or studies at time of discharge. ADVANCE DIRECTIVES: There were no advance directives on file, and patient was full code during this hospitalization. The following psychotropic medication treatment informed consent and recommendations were provided to the patient at time of discharge. Patient reports she understands, accepts, and agrees to the information that has been provided. PSYCHOTROPIC MEDICATION TREATMENT INFORMED CONSENT and RECOMMENDATIONS: Review nature of condition, diagnosis, and prognosis. Review nature and purpose of psychotropic medication treatment. Review type of psychotropic medications being prescribed. Review risk and benefits of psychotropic medication treatment. Review probable length of time will need to take medications. Review risk and benefits of not undergoing psychotropic medication treatment. Review alternative treatments to psychotropic medications. Review psychotropic medications contraindications, side effects, and importance of reporting any side effects to a psychiatric provider, primary care provider, or other health wild animal caretaker. Review importance of her asking a psychiatric provider or primary care provider any questions or problems concerning the psychotropic medications. Review importance of reporting to a psychiatric provider, primary care provider, or other health wild animal caretaker if she plans to or becomes . Review safety plan and the importance to contact [facility] or [facility] , or go to the nearest emergency room, if ever a danger to yourself/others, or unable to care for yourself. Recommend upon discharge to establish routine medication management treatment with a psychiatric provider, establish routine therapy appointments, and follow-up with a primary care provider. Verify patient understands, accepts, and agrees to the information that has been provided. /[id number]
== END 2018-11-12 12:18 | disposition home or self-care (01) | DRG 885 ==
LOC: EDUNIT# → BBEH 11-09 00:45
PROVIDERS: ADMIT Psychiatry & Neurology Behavioral Neurology & Neuropsychiatry; ATTEND Psychiatry & Neurology Behavioral Neurology & Neuropsychiatry
DX: F32.3 Major depressive disorder, single episode, severe with psychotic features (principal); T43.592A Poisoning by other antipsychotics and neuroleptics, intentional self-harm, initial encounter; T39.312A Poisoning by propionic acid derivatives, intentional self-harm, initial encounter; T43.02 Poisoning by, adverse effect of and underdosing of tetracyclic antidepressants; T40.2X2A Poisoning by other opioids, intentional self-harm, initial encounter; F43.10 Post-traumatic stress disorder, unspecified; F12.959 Cannabis use, unspecified with psychotic disorder, unspecified; F16.959 Hallucinogen use, unspecified with hallucinogen-induced psychotic disorder, unspecified; Z91.5 Personal history of self-harm
CPT/HCPCS: 80305; 96374; G0480; J2405